=== PATIENT | male | born 1990 | race Caucasian/White ===

== ENCOUNTER 2019-04-14 05:33 | Emergency (ER) | payer SELFPAY ==
[2019-04-14 05:47] VITALS: BP 124/80
--- NOTE | 2019-04-14 06:41 | ER Document Report ---
ED Extremity Problem, Upper - General Chief Complaint: Arm Pain Stated Complaint: ARM PAIN Time Seen by Provider: 04/14/19 06:09 TRAVEL OUTSIDE OF THE [place] IN LAST 30 DAYS: No - HPI Notes: Patient is a 29-year-old male that presents to the emergency department for chief complaint of fever and right arm pain. Patient states 2 days ago he was stung by a bee. He states he remembers removing the stinger and is sure it was a PE. He reports increased redness and swelling over his right forearm since then. Patient reports yesterday he had shaking chills with a T-max of 100.1. Patient reports history of sepsis secondary to a MRSA abscess on his right lower extremity a few years back and is concerned that he is becoming infected. He did report a mild diffuse headache that has been intermittent since the insect sting as well. He denies any neck pain or stiffness, shortness of breath, chest pain and cough, nausea and vomiting. Patient took 2 Tylenol 500 mg tablets at 5 AM this morning and reports improvement of his fever and headache symptoms. Past Medical History: Negative Past Surgical History: Negative Social History: Denies drugs alcohol and tobacco Family History: Reviewed and noncontributory for presenting illness Allergies: Reviewed, see documented allergy list. REVIEW OF SYSTEMS: CONSTITUTIONAL : fever chills No diaphoresis No recent illness EENT: No vision changes No congestion No sore throat CARDIOVASCULAR: No chest pain No palpitations RESPIRATORY: No shortness of breath No cough No difficulty breathing GASTROINTESTINAL: No abdominal pain No nausea No vomiting No diarrhea GENITOURINARY: No dysuria No hematuria No difficulty urinating MUSCULOSKELETAL: No back pain No leg pain arm pain SKIN: No rashes lesions LYMPHATIC: No swollen, enlarged glands. NEUROLOGICAL: No lightheadedness No headache No weakness No paresthesias PSYCHIATRIC: No anxiety No depression PHYSICAL EXAMINATION: Vital signs reviewed, nursing noted reviewed. GENERAL: Well-appearing, well-nourished and in no acute distress. HEAD: Atraumatic, normocephalic. EYES: Eyes appear normal, extraocular movements intact, sclera anicteric, conjunctiva are normal. ENT: nares patent, oropharynx clear without exudates. Moist mucous membranes. NECK: Normal range of motion, supple without lymphadenopathy LUNGS: Breath sounds clear to auscultation bilaterally and equal. No wheezes rales or rhonchi. HEART: Regular rate and rhythm without murmurs ABDOMEN: Soft, nontender, normoactive bowel sounds. No rebound, guarding, or rigidity. No masses appreciated. EXTREMITIES: Right index finger laceration to PIP joint on the dorsal aspect with 1 suture and placed, no digital erythema or drainage from the wound. Nontender, good range of motion, no pitting or edema. NEUROLOGICAL: No focal neurological deficits. Moves all extremities spontaneously Motor and sensory grossly intact on exam. PSYCH: Normal mood, normal affect. SKIN: Warm, Dry, normal turgor, punctate erythema to right forearm with no lymphatic erythematous streaking. No areas of fluctuance. Mild surrounding induration. - Related Data Allergies/Adverse Reactions: sulfamethoxazole [From Bactrim] Allergy (Mild, Verified 04/14/19 05:37) trimethoprim [From Bactrim] Allergy (Mild, Verified 04/14/19 05:37) Past Medical History - Social History Smoking Status: Never Smoker Frequency of alcohol use: None Drug Abuse: None Family History: None Patient has suicidal ideation: No Patient has homicidal ideation: No Renal/ Medical History: Denies: Hx Peritoneal Dialysis Skin Medical History: Reports Hx Cellulitis - phlebitis Psychiatric Medical History: Reports: Hx Bipolar Disorder - manic depressive Past Surgical History: Reports: Hx Adenoidectomy, Hx Tonsillectomy - 1994 - Immunizations Immunizations up to date: Yes Hx Diphtheria, Pertussis, Tetanus Vaccination: Yes Physical Exam - Vital signs Vitals: Temp Pulse Resp BP Pulse Ox 97.7 F 99 16 124/80 97 04/14/19 05:39 04/14/19 05:39 04/14/19 05:39 04/14/19 05:39 04/14/19 05:39 Course - Re-evaluation Re-evalutation: 04/14/19 06:41 Vitals reviewed. Nursing notes reviewed. Patient is currently afebrile and nontoxic in appearance. He has no nuchal rigidity or signs of meningitis. His headache was improved after Tylenol this morning. I am not currently suspicious for meningitis. Patient does have a small area on his right forearm consistent with insect sting that has surrounding induration. He is not septic appearing. Patient will be started on Keflex for his superimposed infection on insect sting. He does have a suture in his right index finger which is due to get removed in 2 days. Patient has no signs of wound infection and his digital laceration is healing well. He will be discharged home in stable condition. - Vital Signs Vital signs: Temp Pulse Resp BP Pulse Ox 97.7 F 99 16 124/80 97 04/14/19 05:39 04/14/19 05:39 04/14/19 05:39 04/14/19 05:39 04/14/19 05:39 Discharge - Discharge Clinical Impression: Bite or sting by insect with infection Condition: Stable Disposition: HOME, SELF-CARE Instructions: Insect Sting ([facility]) Additional Instructions: Please return to the emergency department if you have any worsening, or concern of your symptoms. Please return to the emergency department if you develop chest pain, difficulty breathing, severe abdominal pain, or ongoing vomiting. Please follow-up with your primary care physician in 2-3 days and any other recommended physicians. If prescribed, take all medications as directed. If you have any questions or concerns do not hesitate to return the emergency department for evaluation. Prescriptions: Cephalexin Monohydrate [Keflex 500 mg Capsule] 500 mg PO BID #10 capsule Referrals: [facility] [Provider Group] - Follow up as needed
== END 2019-04-14 06:24 | disposition home or self-care (01) ==
LOC: ER 05:33
DX: L08.9 Local infection of the skin and subcutaneous tissue, unspecified (principal); T63.441A Toxic effect of venom of bees, accidental (unintentional), initial encounter; Z86.14 Personal history of Methicillin resistant Staphylococcus aureus infection; S61.210D Laceration without foreign body of right index finger without damage to nail, subsequent encounter; X58.XXXD Exposure to other specified factors, subsequent encounter; R50.9 Fever, unspecified; R51 Headache; Z88.1 Allergy status to other antibiotic agents
CPT/HCPCS: 99283